=== PATIENT | female | born 1965 ===

== ENCOUNTER 2025-03-07 11:04 | Outpatient (CLI) | payer OTHER ==
[~2025-03-07 11:04] MED LIST: COZAAR25 MG PO
== END 2025-03-07 11:07 | disposition home or self-care (01) ==
LOC: SONOGRAMA 11:04
PROVIDERS: ATTEND Pathology Anatomic Pathology & Clinical Pathology
DX: D34 Benign neoplasm of thyroid gland (principal); E07.89 Other specified disorders of thyroid; E04.2 Nontoxic multinodular goiter